=== PATIENT | female | born 1945 | race Caucasian/White ===

== ENCOUNTER 2019-09-24 10:30 | Inpatient (IN) | payer MEDICARE ==
[2019-09-24] MEDS ORDERED: ACETAMINOPHEN TAB 325 MG TAB PO PRN (10:41)
[2019-09-24] MEDS ORDERED: NALOXONE 0.4 MG/ML 1 ML VIAL IV PRN (10:41)
--- NOTE | 2019-09-24 10:44 | ED ---
General Adult HPI - General Stated complaint: CHF Time Seen by Provider: 09/24/19 10:34 Source: patient, RN notes reviewed, old records reviewed - History of Present Illness Initial comments: 73-year-old female transferred from [place] for evaluation of hypoxia and dyspnea. Patient was diagnosed with pneumonia, and congestive heart failure. She was given antibiotics and Lasix prior to transfer. There was also concern f or pulmonary embolism however the patient could not have a CT angiography performed secondary to body habitus. She was sent to this institution for further treatment of pneumonia, CHF, and evaluation of pulmonary embolism by VQ scan. Patient states she had had dyspnea for the past several days, and denies cough, denies central chest pain. Does report bilateral lower extremity edema. Currently on 20 mg of Lasix daily. Additionally she has history of atrial fibrillation and is not on anticoagulation secondary to bleeding issues. - Related Data Allergies Allergy/AdvReac Type Severity Reaction Status Date / Time No Known Allergies Allergy Verified 09/24/19 10:45 Review of Systems ROS Statement: Those systems with pertinent positive or pertinent negative responses have been documented in the HPI. ROS Other: All systems not noted in ROS Statement are negative. General Exam General appearance: alert, in no apparent distress Head exam: Present: atraumatic, normocephalic Eye exam: Present: normal appearance, PERRL ENT exam: Present: normal exam Neck exam: Present: normal inspection. Absent: tenderness, meningismus Respiratory exam: Present: rales, rhonchi, decreased breath sounds. Absent: respiratory distress Cardiovascular Exam: Present: regular rate, irregular rhythm GI/Abdominal exam: Present: soft, distended. Absent: tenderness, guarding, rebound Extremities exam: Present: pedal edema. Absent: calf tenderness Neurological exam: Present: alert, oriented X3, CN II-XII intact. Absent: motor sensory deficit Psychiatric exam: Present: normal affect, normal mood Skin exam: Present: warm, dry, intact. Absent: cyanosis, diaphoretic Medical Decision Making - Medical Decision Making 73-year-old female transferred for pneumonia, CHF, and concern for pulmonary embolism. VQ scan has been ordered, I have low suspicion for pulmonary embolism however given the patient's recent travel history and hypoxia this should be ruled out. She will receive continued treatment for pneumonia and CHF. Laboratory testing was reviewed from outside hospital, [facility] White blood cell count of 20, hemoglobin was 11. She had normal kidney function with a creatinine of 1. She had a negative troponin and an elevated BNP. Case discussed with Dr. Farfan he will accept admission and will follow-up o n VQ scan. Disposition Clinical Impression: Pneumonia, CHF (congestive heart failure) Disposition: ADMITTED IP TO THIS HOSP Condition: Stable Is patient prescribed a controlled substance at d/c from ED?: No Referrals: Dinesh Desouza MD [Primary Care Provider] - 1-2 days Decision to Admit Reason: Admit from EC Decision Date: 09/24/19 Decision Time: 10:53
[2019-09-24] MEDS ORDERED: METOPROLOL SUCCINATE (ER) 25 MG TAB.ER.24H PO STA (10:58)
[2019-09-24] MEDS ORDERED: DILTIAZEM DRIP BOLUS FROM BAG 1 MG SOLN IV ONE (12:47)
[2019-09-24] MEDS: DILTIAZEM 125 MG in SODIUM CHLORIDE 0.9% 100 ML IV SCH (13:28)
[2019-09-24 14:55] LABS: Cholesterol 103 mg/dL (<200); HDL Cholesterol 16 mg/dL (40-60); LDL Cholesterol,Calculated 59 mg/dL (0-99); Triglycerides 140 mg/dL (<150)
[2019-09-24 15:02] VITALS: BMI 54.9
--- NOTE | 2019-09-24 15:29 | P.HPIM ---
History of Present Illness H&P Date: 09/24/19 Chief Complaint: Shortness of breath This is a 73-year-old female with past medical history noted below who presented to an outside emergency room with worsening shortness of breath and dyspnea. Patient said that her symptoms started 3 days ago. She denies fever or chills. No cough. No chest pain. Patient said that she is chronically unable to lay flat and get short of breath with laying flat. She denies history of CHF. She is known to have history of chronic A. fib and usually follow-up with cardiology locally. Last week she came from [place] and was a passenger in a car with her driving the car all the way from [place]. There was concern about her possibly having a PE that she did not fit in the computed tomography scan machine at the outside hospital so she was transferred here for a VQ scan. Chest x-ray at the outside hospital showed lung infiltrate suggestive for pneumonia versus CHF. Review of Systems Review of system: 14 points review of systems were obtained and were negative except to what were mentioned in the HPI. Past Medical History Past Medical History: Atrial Fibrillation, Cancer, Diabetes Mellitus, GERD/Reflux, Hyperlipidemia, Hypertension, Osteoarthritis (OA) Additional Past Medical History / Comment(s): NIDDM type II, neuropathy bilateral lower legs/feet, past anemia with transfusion, past esophageal "lesions" cauterized off, uterine cancer with surgery, chronic low back pain, bilateral leg edema at times, UTIs. History of Any Multi-Drug Resistant Organisms: None Reported Past Surgical History: Hysterectomy, Orthopedic Surgery, Tonsillectomy Additional Past Surgical History / Comment(s): EGD, colonoscopy, R knee arthroscopy, bilateral cataract removals/lens implants Past Anesthesia/Blood Transfusion Reactions: No Reported Reaction Additional Past Anesthesia/Blood Transfusion Reaction / Comment(s): Pt has received blood in past without reaction. Smoking Status: Never smoker - Past Family History Father Family Medical History: Cancer Additional Family Medical History / Comment(s): Father had lung cancer. Mother Family Medical History: Diabetes Mellitus Medications and Allergies Home Medications Medication Instructions Recorded Confirmed Type Cholecalciferol [Vitamin D3 (25 5,000 unit PO DAILY 09/24/19 09/24/19 History Mcg = 1000 Iu)] Lisinopril [Zestril] 2.5 mg PO DAILY 09/24/19 09/24/19 History Magnesium 250 mg PO DAILY 09/24/19 09/24/19 History Metoprolol Succinate (ER) [Toprol 50 mg PO DAILY 09/24/19 09/24/19 History Xl] Omeprazole 20 mg PO DAILY 09/24/19 09/24/19 History Pravastatin Sodium [Pravachol] 20 mg PO HS 09/24/19 09/24/19 History glipiZIDE [Glucotrol] 5 mg PO AC-BRKFST 09/24/19 09/24/19 History metFORMIN HCL [metFORMIN HCL ER] 500 mg PO BID 09/24/19 09/24/19 History Allergies Allergy/AdvReac Type Severity Reaction Status Date / Time No Known Allergies Allergy Verified 09/24/19 10:45 Physical Exam Vitals: Vital Signs Temp Pulse Resp BP Pulse Ox 09/24/19 13:16 110 H 18 09/24/19 12:47 135 H 24 134/82 09/24/19 12:16 22 119/80 99 09/24/19 11:46 115 H 20 110/80 100 09/24/19 10:46 97.9 F 118 H 22 127/81 100 Intake and Output 09/24/19 09/24/19 09/24/19 06:59 14:59 22:59 Output Total 405 Balance -405 Output: Urine 405 Other: Weight 145.15 kg General: The patient is awake and alert, in no distress Eye: there is normal conjunctiva bilaterally. Neck: The neck is supple, there is no JVD. Cardiovascular: Normal S1-S2, no S3-S4, no murmurs. Respiratory: Diminished with scattered crackles Gastrointestinal: Abdomen is soft, nontender Musculoskeletal: There is 1-2 pedal edema bilaterally Neurological:. Speech is normal. Skin: Skin is warm and dry Results Labs: Abnormal Lab Results - Last 24 Hours (Table) 09/24/19 09/24/19 Range/Units 14:14 14:14 D-Dimer 2.36 H (<0.60) mg/L FEU HDL Cholesterol 16 L (40-60) mg/dL Thrombosis Risk Factor Assmnt - Choose All That Apply Any of the Below Risk Factors Present?: Yes Each Factor Represents 1 point: Heart failure (<1month), Obesity (BMI >25), Serious lung disease incl. pneumonia (< 1month), Swollen legs (current) Other Risk Factors: Yes Each Risk Factor Represents 2 Points: Age 61-74 years Other congenital or acquired thrombophilia - If yes, enter type in comment: No Thrombosis Risk Factor Assessment Total Risk Factor Score: 6 Thrombosis Risk Factor Assessment Level: High Risk Assessment and Plan Assessment: 1. Acute congestive heart failure exacerbation. Unclear whether systolic or diastolic. Awaiting echocardiogram. Seen and evaluated by cardiology. Continue IV Lasix 40 mg twice daily. Awaiting BNP. 2. Dyspnea with elevated d-dimer, this did not fit in the computed tomography scan machine. Awaiting VQ scan. 3. Community-acquired pneumonia: This likely clinically as patient denies any cough and no leukocytosis. We will order pro-calcitonin. Continue antibiotic with ceftriaxone and azithromycin for now. 4. Type 2 diabetes: Continue sliding scale insulin. Hold oral agents. 5. DVT prophylaxis with subcu heparin
[2019-09-24 16:22] LABS: Glucose,Whole Blood 136 mg/dL (75-99)
--- NOTE | 2019-09-24 17:07 | CONS ---
CONSULTATION Mrs. Samayoa is a 73-year-old female who is transferred from [facility] for evaluation of dyspnea. She has been complaining of progressive dyspnea over the last 3 or 4 days with no fever and no significant cough. She was diagnosed with pneumonia. Patient has a known history of chronic persistent atrial fibrillation, has been followed by Dr. West on a regular basis and has not been anticoagulated because of severe hematuria with 2 different anticoagulant. She has traveled back from [place] recently. In the past, her left ventricular systolic function was normal and she had mild to moderate tricuspid and mild mitral regurgitation. She has no history of coronary artery disease and her stress test in 2019 showed no evidence of inducible ischemia. The patient has been complaining of progressive dyspnea. She has chronic peripheral edema, no clear PND. No orthopnea. No chest discomfort. She denies any dizziness or palpitations. She is not aware of the atrial fibrillation. She has a history of hyperlipidemia, diabetes and hypertension. She is a nonsmoker. MEDICATION: At home include metformin, Glucotrol, pravastatin 20 mg daily, omeprazole, metoprolol succinate 50 mg daily, magnesium, Zestril 2.5 mg daily. REVIEW OF SYSTEMS: RESPIRATORY SYSTEM: She has dyspnea on exertion, the cough. She had prior wheezing. GI SYSTEM: No GI bleeding. No nausea or vomiting. SYSTEM: No further hematuria after she stopped the anticoagulant in the fall. NERVOUS SYSTEM: No history of stroke or seizure. PHYSICAL EXAMINATION: A 73-year-old female, alert, oriented, in no apparent distress. Morbidly obese. Blood pressure 134/80 with a heart rate in the 110s. HEAD: Normocephalic. EYES: Sclerae anicteric. NECK: Good upstroke, no bruit. LUNGS: With a few crackles, no wheezes. HEART: Irregular, regular, S1, S2. No S3 with systolic murmur at the base, ejection type, no diastolic murmur. ABDOMEN: Soft, obese, nontender. Positive bowel sounds, no organomegaly. EXTREMITIES: +1 edema. LAB DATA: Showed an EKG with atrial fibrillation, rate of 119, poor R-wave progression, nonspecific ST-T wave changes. Chest x-ray showed left basal atelectasis. Creatinine of 1.0, BUN of 19, potassium 3.6. BNP of 685. Troponin 0.01. Hemoglobin of 11.3, white blood cell of 22.6. IMPRESSION: 1. Symptoms of progressive dyspnea with possible pulmonary infection. Patient has evidence of fluid overload with prior preserved systolic function. 2. Chronic persistent atrial fibrillation, not anticoagulated because of recurrent hematuria. 3. History of hypertension. 4. Hyperlipidemia. 5. Diabetes mellitus. 6. Morbid obesity. RECOMMENDATION: Patient is receiving treatment for pneumonia because of her recent travel from [place]. She will undergo a V/Q scan. Apparently, she could not lay flat for a CT angiogram. I will obtain echocardiogram with Doppler. Will follow her renal function. I will adjust her dose of beta demario. Depending on her progress, further recommendation will be made. Thank you for this consult. Will follow with you. MMODL / IJN: [id number] /
[2019-09-24] MEDS: INSULIN ASPART (NovoLOG) 100 UNIT/ML VIAL SQ SCH ×2 (17:11→20:42)
--- NOTE | 2019-09-24 17:33 | ECHOF ---
Referral Reason:AF, CHF MEASUREMENTS -------- HEIGHT: 162.6 cm WEIGHT: 145.1 kg BP: 119/80 RVIDd: 3.3 cm (< 3.3) IVSd: 1.3 cm (0.6 - 1.1) LVIDd: 5.6 cm (3.9 - 5.3) LVPWd: 1.2 cm (0.6 - 1.1) IVSs: 1.7 cm LVIDs: 3.4 cm LVPWs: 1.9 cm LA Diam: 4.3 cm (2.7 - 3.8) Ao Diam: 3.4 cm (2.0 - 3.7) AV Cusp: 1.8 cm (1.5 - 2.6) AV maxP.95 mmHg AV meanP.28 mmHg RAP: 5.00 mmHg RVSP: 45.07 mmHg FINDINGS -------- This was a technically difficult study with suboptimal views. The left ventricular size is normal. There is mild concentric left ventricular hypertrophy. Overa ll left ventricular systolic function is mildly impaired with, an EF between 45 - 50 %. The right ventricle is mildly enlarged. The left atrium is moderately dilated. The right atrium was not well visualized. Lumason used There is mild aortic valve sclerosis. Mild mitral annular calcification present. Mild tricuspid regurgitation present. There is mild to moderate pulmonary hypertension. The right ventricular systolic pressure, as measured by Doppler, is 45.07mmHg. The pulmonic valve was not well visualized. The aortic root size is normal. CONCLUSIONS -------- 1. This was a technically difficult study with suboptimal views. 2. The left ventricular size is normal. 3. There is mild concentric left ventricular hypertrophy. 4. Overall left ventricular systolic function is mildly impaired with, an EF between 45 - 50 %. 5. The right ventricle is mildly enlarged. 6. The left atrium is moderately dilated. 7. The right atrium was not well visualized. 8. Lumason used 9. There is mild aortic valve sclerosis. 10. Mild mitral annular calcification present. 11. Mild tricuspid regurgitation present. 12. There is mild to moderate pulmonary hypertension. 13. The right ventricular systolic pressure, as measured by Doppler, is 45.07mmHg. 14. The pulmonic valve was not well visualized. 15. The aortic root size is normal. LOG SKIDDER: Britany Bullard RDCS
[2019-09-24 20:08] LABS: Glucose,Whole Blood 200 mg/dL (75-99)
[2019-09-24] MEDS: HEPARIN SODIUM,PORCINE 5,000 UNIT/ML 1 ML VIAL SQ SCH (20:41)
[2019-09-24] MEDS: FUROSEMIDE 10 MG/ML 4 ML VIAL IV SCH (20:41)
[2019-09-24] MEDS: PRAVASTATIN SODIUM 20 MG TAB PO SCH (20:42)
[2019-09-24] MEDS: METOPROLOL SUCCINATE (ER) 50 MG TAB.ER.24H PO SCH (20:42)
[2019-09-25 06:04] LABS: Glucose,Whole Blood 140 mg/dL (75-99)
[2019-09-25] MEDS: INSULIN ASPART (NovoLOG) 100 UNIT/ML VIAL SQ SCH ×4 (06:20→20:46)
[2019-09-25] MEDS: METOPROLOL SUCCINATE (ER) 50 MG TAB.ER.24H PO SCH ×2 (08:23→20:46)
[2019-09-25] MEDS: FUROSEMIDE 10 MG/ML 4 ML VIAL IV SCH ×2 (08:24→20:46)
[2019-09-25] MEDS: HEPARIN SODIUM,PORCINE 5,000 UNIT/ML 1 ML VIAL SQ SCH ×2 (08:24→20:46)
[2019-09-25] MEDS ORDERED: AZITHROMYCIN 500 MG in SODIUM CHLORIDE 0.9% 250 ML IVPB SCH (09:00)
[2019-09-25 09:08] LABS: Calcium 8.4 mg/dL (8.4-10.2); Potassium 4.2 mmol/L (3.5-5.1)
[2019-09-25 10:15] LABS: Anisocytosis Slight; HCT 38.6 % (34.0-46.0); HGB 10.7 gm/dL (11.4-16.0); Hypochromasia Marked; MCH 23.7 pg (25.0-35.0); MCHC 27.6 g/dL (31.0-37.0); MCV 85.7 fL (80.0-100.0); Mean Platelet Volume 7.8; Platelet Count 428 k/uL (150-450); RBC 4.51 m/uL (3.80-5.40); RDW 16.3 % (11.5-15.5); WBC 20.6 k/uL (3.8-10.6)
[2019-09-25] MEDS: LISINOPRIL 2.5 MG TAB PO SCH (10:17)
[2019-09-25 12:01] LABS: Glucose,Whole Blood 219 mg/dL (75-99)
--- NOTE | 2019-09-25 12:23 | CT ---
EXAMINATION TYPE: CT angio chest DATE OF EXAM: 09/25/2019 11:52 AM COMPARISON: None. HISTORY: SOB CT DLP: 1053.2 mGycm Automated exposure control for dose reduction was used. CONTRAST: CTA scan of the thorax is performed with IV Contrast, patient injected with 100 mL of Isovue 300, pul monary embolism protocol. . FINDINGS: There is significant breathing motion artifact on this study. There is some atelectasis or consolidation at the right lung base. There is further opacification of the distal pulmonary arteries. There is no large central pulmonary embolus. The aortic root is dilated measuring 4.2 cm. The proximal arch is aneurysmal measuring 3.5 c m. The remainder the visualized aorta is normal in caliber. There is no pleural or pericardial fluid. The heart is enlarged. There is a large hiatal hernia present. Visualized portions of the upper abdomen are unremarkable. There is hypertrophic spondylosis within the spine. IMPRESSION: 1. SUBOPTIMAL EXAMINATION. 2. NO LARGE, CENTRAL PULMONARY EMBOLI. 3. ASCENDING THORACIC AORTIC ANEURYSM WITH MAXIMAL TRANSVERSE DIAMETER 4.2 CM . 4. PROMINENT HIATAL HERNIA. 5. DEGENERATIVE CHANGES WITHIN THE SPINE. .5
--- NOTE | 2019-09-25 12:57 | P.PN ---
Objective - Vital Signs Vital signs: Vital Signs Temp 98.1 F 09/25/19 08:40 Pulse 96 09/25/19 12:00 Resp 18 09/25/19 12:00 BP 107/58 09/25/19 12:00 Pulse Ox 96 09/25/19 12:00 Intake & Output 09/24/19 09/25/19 09/25/19 18:59 06:59 18:59 Intake Total 240 540 120 Output Total 405 750 Balance -165 -210 120 Weight 145.15 kg 150.5 kg 147.5 kg Intake: Oral 240 540 120 Output: Urine 405 750 Other: Voiding Method Incontinent # Voids 1 - Labs CBC & Chem 7: 09/25/19 08:37 09/25/19 08:37 Labs: Abnormal Lab Results - Last 24 Hours (Table) 09/24/19 09/24/19 09/24/19 Range/Units 14:14 14:14 16:21 WBC (3.8-10.6) k/uL Hgb (11.4-16.0) gm/dL MCH (25.0-35.0) pg MCHC (31.0-37.0) g/dL RDW (11.5-15.5) % D-Dimer 2.36 H (<0.60) mg/L FEU Chloride (98-107) mmol/L Carbon Dioxide (22-30) mmol/L BUN (7-17) mg/dL Creatinine (0.52-1.04) mg/dL Glucose (74-99) mg/dL POC Glucose (mg/dL) 136 H (75-99) mg/dL HDL Cholesterol 16 L (40-60) mg/dL 09/24/19 09/25/19 09/25/19 Range/Units 20:06 06:00 08:37 WBC (3.8-10.6) k/uL Hgb (11.4-16.0) gm/dL MCH (25.0-35.0) pg MCHC (31.0-37.0) g/dL RDW (11.5-15.5) % D-Dimer (<0.60) mg/L FEU Chloride 94 L (98-107) mmol/L Carbon Dioxide 37 H (22-30) mmol/L BUN 21 H (7-17) mg/dL Creatinine 1.09 H (0.52-1.04) mg/dL Glucose 195 H (74-99) mg/dL POC Glucose (mg/dL) 200 H 140 H (75-99) mg/dL HDL Cholesterol (40-60) mg/dL 09/25/19 09/25/19 Range/Units 08:37 11:56 WBC 20.6 H (3.8-10.6) k/uL Hgb 10.7 L (11.4-16.0) gm/dL MCH 23.7 L (25.0-35.0) pg MCHC 27.6 L (31.0-37.0) g/dL RDW 16.3 H (11.5-15.5) % D-Dimer (<0.60) mg/L FEU Chloride (98-107) mmol/L Carbon Dioxide (22-30) mmol/L BUN (7-17) mg/dL Creatinine (0.52-1.04) mg/dL Glucose (74-99) mg/dL POC Glucose (mg/dL) 219 H (75-99) mg/dL HDL Cholesterol (40-60) mg/dL Assessment and Plan Assessment: 1. Acute systolic congestive heart failure exacerbation. Echocardiogram showed EF of 45%. Seen and evaluated by cardiology. Continue IV Lasix 40 mg twice daily. 2. Dyspnea with elevated d-dimer, CT angiogram of the chest was a suboptimal study with no obvious central PE 3. Community-acquired pneumonia: Continue antibiotic with ceftriaxone and azithromycin 4. Type 2 diabetes: Continue sliding scale insulin. Hold oral agents. 5. Ascending thoracic aneurysm measuring 4.2 cm noted on computed tomography scan 6. Moderate pulmonary hypertension: Noted on echocardiogram heart 7. DVT prophylaxis with subcu heparin Continue diuresis. Strict I's and O's. Appreciate cardiology recommendations. Repeat lab work in the morning.
--- NOTE | 2019-09-25 15:06 | P.PN ---
Subjective Progress Note Date: 09/25/19 This is a pleasant 73-year-old female who was transferred from [facility] for evaluation of dyspnea. She spent complaining of progressive dyspnea over the last 3 or 4 days with no fever or significant cough. She was diagnosed with pneumonia. Patient has a history of chronic persistent atrial fibrillation and has been followed with Dr. West who has attempted anticoagulation in the past with recurrent severe hematuria. She is being treated for CHF and pneumonia. She is currently on Zithromax, Rocephin, Lasix 40 mg IV push every 12 hours, metoprolol succinate 50 mg by mouth twice a day and pravastatin 20 mg by mouth daily at bedtime. Heart rates are better controlled and at the time of my examination Cardizem is on hold. Mild hypotension noted. Labs this morning showed white blood cell count 20,600, hemoglobin 10.7, BUN 21, creatinine 1.09. NT proBNP 2430. CT of the chest s howed suboptimal examination, no large central pulmonary emboli, ascending thoracic aortic aneurysm with maximal transverse diameter of 4.2 cm and prominent hiatal hernia. Echocardiogram with Doppler study showed mildly impaired LV systolic function with an ejection fraction between 45-50%, mildly enlarged RV, moderately dilated LA, mild TR and mild to moderate pulmonary hypertension. Objective - Vital Signs Vital signs: Vital Signs Temp 98.3 F 09/25/19 13:29 Pulse 102 H 09/25/19 13:29 Resp 31 H 09/25/19 13:29 BP 98/60 09/25/19 13:29 Pulse Ox 90 L 09/25/19 13:29 Intake & Output 09/24/19 09/25/19 09/25/19 18:59 06:59 18:59 Intake Total 240 540 120 Output Total 405 750 Balance -165 -210 120 Weight 145.15 kg 150.5 kg 147.5 kg Intake: Oral 240 540 120 Output: Urine 405 750 Other: Voiding Method Incontinent # Voids 1 - Exam PHYSICAL EXAMINATION: HEENT: Head is atraumatic, normocephalic. Pupils equal, round. Neck is supple. There is no elevated jugular venous pressure. HEART EXAMINATION: Heart sounds irregular irregular, S1 and S2 with a systolic murmur at the base. CHEST EXAMINATION: Lungs reveal few faint crackles. No chest wall tenderness is noted on palpation or with deep breathing. ABDOMEN: Soft, obese, nontender. Bowel sounds are heard. No organomegaly noted. EXTREMITIES: 2+ peripheral pulses with evidence of +1 peripheral edema and no calf tenderness noted. NEUROLOGIC patient is awake, alert and oriented x3. . - Labs CBC & Chem 7: 09/25/19 08:37 09/25/19 08:37 Labs: Abnormal Lab Results - Last 24 Hours (Table) 09/24/19 09/24/19 09/25/19 Range/Units 16:21 20:06 06:00 WBC (3.8-10.6) k/uL Hgb (11.4-16.0) gm/dL MCH (25.0-35.0) pg MCHC (31.0-37.0) g/dL RDW (11.5-15.5) % Chloride (98-107) mmol/L Carbon Dioxide (22-30) mmol/L BUN (7-17) mg/dL Creatinine (0.52-1.04) mg/dL Glucose (74-99) mg/dL POC Glucose (mg/dL) 136 H 200 H 140 H (75-99) mg/dL 09/25/19 09/25/19 09/25/19 Range/Units 08:37 08:37 11:56 WBC 20.6 H (3.8-10.6) k/uL Hgb 10.7 L (11.4-16.0) gm/dL MCH 23.7 L (25.0-35.0) pg MCHC 27.6 L (31.0-37.0) g/dL RDW 16.3 H (11.5-15.5) % Chloride 94 L (98-107) mmol/L Carbon Dioxide 37 H (22-30) mmol/L BUN 21 H (7-17) mg/dL Creatinine 1.09 H (0.52-1.04) mg/dL Glucose 195 H (74-99) mg/dL POC Glucose (mg/dL) 219 H (75-99) mg/dL Assessment and Plan Assessment: #1 symptoms of progressive dyspnea with possible pulmonary infection with evidence of fluid overload secondary to combined congestive heart failure with evidence of pulmonary hypertension and mildly impaired systolic function #2 chronic persistent atrial fibrillation, not anticoagulated due to recurrent hematuria #3 history of hypertension #4 hyperlipidemia #5 diabetes mellitus #6 morbid obesity Plan: From cardiology's perspective will continue IV Lasix at this time. Continue beta demario. Stop Cardizem. We will continue to follow the patient provide further recommendations accordingly. [employer] note has been reviewed, I agree with a documented findings and plan of care. Patient was seen and examined.
[2019-09-25] MEDS: DILTIAZEM 125 MG in SODIUM CHLORIDE 0.9% 100 ML IV SCH (15:29)
[2019-09-25 17:35] LABS: Glucose,Whole Blood 140 mg/dL (75-99)
[2019-09-25 20:35] LABS: Glucose,Whole Blood 175 mg/dL (75-99)
[2019-09-25] MEDS: PRAVASTATIN SODIUM 20 MG TAB PO SCH (20:46)
[2019-09-26 06:30] LABS: Glucose,Whole Blood 163 mg/dL (75-99)
[2019-09-26] MEDS: INSULIN ASPART (NovoLOG) 100 UNIT/ML VIAL SQ SCH ×4 (06:48→22:18)
[2019-09-26 07:17] LABS: Calcium 8.5 mg/dL (8.4-10.2); Potassium 4.6 mmol/L (3.5-5.1)
[2019-09-26 07:22] LABS: Anisocytosis Slight; Basophils # (A) 0.1 k/uL (0-0.2); Basophils % (A) 0 %; Eosinophils # (A) 0.1 k/uL (0-0.7); Eosinophils % (A) 0 %; HCT 39.9 % (34.0-46.0); HGB 11.2 gm/dL (11.4-16.0); Hypochromasia Marked; Lymphocytes # (A) 0.6 k/uL (1.0-4.8); Lymphocytes % (A) 3 %; MCH 24.5 pg (25.0-35.0); MCV 87.7 fL (80.0-100.0); Mean Platelet Volume 7.4; Monocytes # (A) 0.8 k/uL (0-1.0); Monocytes % (A) 5 %; Neutrophils # (A) 14.9 k/uL (1.3-7.7); Neutrophils % (A) 90 %; Platelet Count 320 k/uL (150-450); RBC 4.55 m/uL (3.80-5.40); RDW 16.4 % (11.5-15.5); WBC 16.6 k/uL (3.8-10.6)
[2019-09-26] MEDS: LISINOPRIL 2.5 MG TAB PO SCH (09:15)
[2019-09-26] MEDS: METOPROLOL SUCCINATE (ER) 50 MG TAB.ER.24H PO SCH ×2 (09:15→22:16)
[2019-09-26] MEDS: FUROSEMIDE 10 MG/ML 4 ML VIAL IV SCH ×2 (09:15→22:08)
[2019-09-26] MEDS: HEPARIN SODIUM,PORCINE 5,000 UNIT/ML 1 ML VIAL SQ SCH ×2 (09:15→22:05)
[2019-09-26] MEDS: AZITHROMYCIN 500 MG TAB PO SCH (09:16)
[2019-09-26 11:58] LABS: Glucose,Whole Blood 150 mg/dL (75-99)
--- NOTE | 2019-09-26 12:22 | P.PN ---
Subjective Progress Note Date: 09/26/19 This is a pleasant 73-year-old female who was transferred from [facility] for evaluation of dyspnea. She spent complaining of progressive dyspnea over the last 3 or 4 days with no fever or significant cough. She was diagnosed with pneumonia. Patient has a history of chronic persistent atrial fibrillation and has been followed with Dr. West who has attempted anticoagulation in the past with recurrent severe hematuria. She is being treated for CHF and pneumonia. She is currently on Zithromax, Rocephin, Lasix 40 mg IV push every 12 hours, metoprolol succinate 50 mg by mouth twice a day and pravastatin 20 mg by mouth daily at bedtime. Heart rates are better controlled and at the time of my examination Cardizem is on hold. Mild hypotension noted. Labs this morning showed white blood cell count 20,600, hemoglobin 10.7, BUN 21, creatinine 1.09. NT proBNP 2430. CT of the chest s howed suboptimal examination, no large central pulmonary emboli, ascending thoracic aortic aneurysm with maximal transverse diameter of 4.2 cm and prominent hiatal hernia. Echocardiogram with Doppler study showed mildly impaired LV systolic function with an ejection fraction between 45-50%, mildly enlarged RV, moderately dilated LA, mild TR and mild to moderate pulmonary hypertension. 09/26/2019 The patient was seen and examined this morning sitting up in bed. She continues to complain of shortness of breath that is minimally improved compared to admission. She doesn't feel she's had any improvement since yesterday. She continues on Zithromax, ceftriaxone, and Lasix 40 mg IV push every 12 hours. She continues to be in atrial fibrillation and heart rates are controlled on metoprolol succinate 50 mg by mouth twice a day. Labs today showed BUN 29, creatinine 1.21, white blood cell count 16,600. Objective - Vital Signs Vital signs: Vital Signs Temp 98.3 F 09/26/19 11:36 Pulse 83 09/26/19 11:36 Resp 18 09/26/19 11:36 BP 90/61 09/26/19 11:36 Pulse Ox 95 09/26/19 11:36 Intake & Output 09/25/19 09/26/19 09/26/19 18:59 06:59 18:59 Intake Total 120 Output Total 200 550 Balance -80 -550 Weight 147.5 kg 152.5 kg Intake: Oral 120 Output: Urine 200 550 Other: Voiding Method Incontinent Incontinent Incontinent - Exam PHYSICAL EXAMINATION: HEENT: Head is atraumatic, normocephalic. Pupils equal, round. Neck is supple. There is no elevated jugular venous pressure. HEART EXAMINATION: Heart sounds irregular irregular, S1 and S2 with a systolic murmur at the base. CHEST EXAMINATION: Lungs reveal few faint crackles. No chest wall tenderness is noted on palpation or with deep breathing. ABDOMEN: Soft, obese, nontender. Bowel sounds are heard. No organomegaly noted. EXTREMITIES: 2+ peripheral pulses with evidence of +1 peripheral edema and no calf tenderness noted. NEUROLOGIC patient is awake, alert and oriented x3. . - Labs CBC & Chem 7: 09/26/19 06:37 09/26/19 06:37 Labs: Abnormal Lab Results - Last 24 Hours (Table) 09/25/19 09/25/19 09/25/19 Range/Units 08:37 17:26 20:29 WBC (3.8-10.6) k/uL Hgb (11.4-16.0) gm/dL MCH (25.0-35.0) pg MCHC (31.0-37.0) g/dL RDW (11.5-15.5) % Neutrophils # (1.3-7.7) k/uL Lymphocytes # (1.0-4.8) k/uL Sodium (137-145) mmol/L Carbon Dioxide (22-30) mmol/L BUN (7-17) mg/dL Creatinine (0.52-1.04) mg/dL Glucose (74-99) mg/dL POC Glucose (mg/dL) 140 H 175 H (75-99) mg/dL Procalcitonin 0.37 H (0.02-0.09) ng/mL 09/26/19 09/26/19 09/26/19 Range/Units 06:30 06:37 06:37 WBC 16.6 H (3.8-10.6) k/uL Hgb 11.2 L (11.4-16.0) gm/dL MCH 24.5 L (25.0-35.0) pg MCHC 28.0 L (31.0-37.0) g/dL RDW 16.4 H (11.5-15.5) % Neutrophils # 14.9 H (1.3-7.7) k/uL Lymphocytes # 0.6 L (1.0-4.8) k/uL Sodium 136 L (137-145) mmol/L Carbon Dioxide 31 H (22-30) mmol/L BUN 29 H (7-17) mg/dL Creatinine 1.21 H (0.52-1.04) mg/dL Glucose 153 H (74-99) mg/dL POC Glucose (mg/dL) 163 H (75-99) mg/dL Procalcitonin (0.02-0.09) ng/mL 09/26/19 Range/Units 11:55 WBC (3.8-10.6) k/uL Hgb (11.4-16.0) gm/dL MCH (25.0-35.0) pg MCHC (31.0-37.0) g/dL RDW (11.5-15.5) % Neutrophils # (1.3-7.7) k/uL Lymphocytes # (1.0-4.8) k/uL Sodium (137-145) mmol/L Carbon Dioxide (22-30) mmol/L BUN (7-17) mg/dL Creatinine (0.52-1.04) mg/dL Glucose (74-99) mg/dL POC Glucose (mg/dL) 150 H (75-99) mg/dL Procalcitonin (0.02-0.09) ng/mL Microbiology - Last 24 Hours (Table) 09/25/19 08:37 Blood Culture - Preliminary Blood No Growth after 24 hours Assessment and Plan Assessment: #1 symptoms of progressive dyspnea with possible pulmonary infection with evidence of fluid overload secondary to combined congestive heart failure with evidence of pulmonary hypertension and mildly impaired systolic function #2 chronic persistent atrial fibrillation, not anticoagulated due to recurrent hematuria #3 history of hypertension #4 hyperlipidemia #5 diabetes mellitus #6 morbid obesity Plan: From cardiology's perspective will continue IV Lasix at this time. Continue beta demario. We will continue to follow the patient provide further recommendations accordingly. INFRASTRUCTURE ARCHITECT note has been reviewed, I agree with a documented findings and plan of care. Patient was seen and examined.
--- NOTE | 2019-09-26 13:45 | P.PN ---
Subjective Patient is feeling about the same. She reported that her shortness of breath is not improving. Objective - Vital Signs Vital signs: Vital Signs Temp 98.3 F 09/26/19 11:36 Pulse 83 09/26/19 11:36 Resp 18 09/26/19 11:36 BP 90/61 09/26/19 11:36 Pulse Ox 95 09/26/19 11:36 Intake & Output 09/25/19 09/26/19 09/26/19 18:59 06:59 18:59 Intake Total 120 Output Total 200 550 Balance -80 -550 Weight 147.5 kg 152.5 kg Intake: Oral 120 Output: Urine 200 550 Other: Voiding Method Incontinent Incontinent Incontinent - Exam General: The patient is awake and alert, in no distress Eye: there is normal conjunctiva bilaterally. Neck: The neck is supple, there is no JVD. Cardiovascular: Normal S1-S2, no S3-S4, no murmurs. Respiratory: Lungs with scattered crackles Gastrointestinal: Abdomen is soft, nontender Musculoskeletal: There is +2 pedal edema. Neurological:. Speech is normal. Skin: Skin is warm and dry - Labs CBC & Chem 7: 09/26/19 06:37 09/26/19 06:37 Labs: Abnormal Lab Results - Last 24 Hours (Table) 09/25/19 09/25/19 09/25/19 Range/Units 08:37 17:26 20:29 WBC (3.8-10.6) k/uL Hgb (11.4-16.0) gm/dL MCH (25.0-35.0) pg MCHC (31.0-37.0) g/dL RDW (11.5-15.5) % Neutrophils # (1.3-7.7) k/uL Lymphocytes # (1.0-4.8) k/uL Sodium (137-145) mmol/L Carbon Dioxide (22-30) mmol/L BUN (7-17) mg/dL Creatinine (0.52-1.04) mg/dL Glucose (74-99) mg/dL POC Glucose (mg/dL) 140 H 175 H (75-99) mg/dL Procalcitonin 0.37 H (0.02-0.09) ng/mL 09/26/19 09/26/19 09/26/19 Range/Units 06:30 06:37 06:37 WBC 16.6 H (3.8-10.6) k/uL Hgb 11.2 L (11.4-16.0) gm/dL MCH 24.5 L (25.0-35.0) pg MCHC 28.0 L (31.0-37.0) g/dL RDW 16.4 H (11.5-15.5) % Neutrophils # 14.9 H (1.3-7.7) k/uL Lymphocytes # 0.6 L (1.0-4.8) k/uL Sodium 136 L (137-145) mmol/L Carbon Dioxide 31 H (22-30) mmol/L BUN 29 H (7-17) mg/dL Creatinine 1.21 H (0.52-1.04) mg/dL Glucose 153 H (74-99) mg/dL POC Glucose (mg/dL) 163 H (75-99) mg/dL Procalcitonin (0.02-0.09) ng/mL 09/26/19 Range/Units 11:55 WBC (3.8-10.6) k/uL Hgb (11.4-16.0) gm/dL MCH (25.0-35.0) pg MCHC (31.0-37.0) g/dL RDW (11.5-15.5) % Neutrophils # (1.3-7.7) k/uL Lymphocytes # (1.0-4.8) k/uL Sodium (137-145) mmol/L Carbon Dioxide (22-30) mmol/L BUN (7-17) mg/dL Creatinine (0.52-1.04) mg/dL Glucose (74-99) mg/dL POC Glucose (mg/dL) 150 H (75-99) mg/dL Procalcitonin (0.02-0.09) ng/mL Microbiology - Last 24 Hours (Table) 09/25/19 08:37 Blood Culture - Preliminary Blood No Growth after 24 hours Assessment and Plan Assessment: 1. Acute systolic congestive heart failure exacerbation. Echocardiogram showed EF of 45%. Seen and evaluated by cardiology. Continue IV Lasix 40 mg twice daily. 2. Dyspnea with elevated d-dimer, CT angiogram of the chest was a suboptimal study with no obvious central PE 3. Community-acquired pneumonia: Continue antibiotic with ceftriaxone and azithromycin the #3 4. Type 2 diabetes: Continue sliding scale insulin. Hold oral agents. 5. Ascending thoracic aneurysm measuring 4.2 cm noted on computed tomography scan 6. Moderate pulmonary hypertension: Noted on echocardiogram heart 7. DVT prophylaxis with subcu heparin Continue diuresis. Strict I's and O's. Appreciate cardiology recommendations. Repeat lab work in the morning.
[2019-09-26 17:13] LABS: Glucose,Whole Blood 182 mg/dL (75-99)
[2019-09-26 20:04] LABS: Glucose,Whole Blood 229 mg/dL (75-99)
[2019-09-26] MEDS: PRAVASTATIN SODIUM 20 MG TAB PO SCH (22:16)
[2019-09-27 06:21] LABS: Glucose,Whole Blood 147 mg/dL (75-99)
[2019-09-27] MEDS: INSULIN ASPART (NovoLOG) 100 UNIT/ML VIAL SQ SCH ×4 (07:07→22:03)
[2019-09-27 07:21] LABS: Calcium 8.4 mg/dL (8.4-10.2); Potassium 4.5 mmol/L (3.5-5.1)
[2019-09-27 08:08] LABS: Basophils # (A) 0.1 k/uL (0-0.2); Basophils % (A) 0 %; Eosinophils # (A) 0.1 k/uL (0-0.7); Eosinophils % (A) 1 %; HCT 35.9 % (34.0-46.0); HGB 10.3 gm/dL (11.4-16.0); Hypochromasia Marked; Lymphocytes # (A) 0.5 k/uL (1.0-4.8); Lymphocytes % (A) 4 %; MCH 24.9 pg (25.0-35.0); MCHC 28.7 g/dL (31.0-37.0); MCV 86.9 fL (80.0-100.0); Mean Platelet Volume 7.5; Monocytes # (A) 0.5 k/uL (0-1.0); Monocytes % (A) 3 %; Neutrophils # (A) 12.8 k/uL (1.3-7.7); Neutrophils % (A) 91 %; Platelet Count 341 k/uL (150-450); RBC 4.13 m/uL (3.80-5.40); RDW 15.8 % (11.5-15.5); WBC 14.1 k/uL (3.8-10.6)
[2019-09-27] MEDS: FUROSEMIDE 10 MG/ML 4 ML VIAL IV SCH ×2 (08:49→22:02)
[2019-09-27] MEDS: HEPARIN SODIUM,PORCINE 5,000 UNIT/ML 1 ML VIAL SQ SCH ×2 (08:49→22:08)
[2019-09-27] MEDS: AZITHROMYCIN 500 MG TAB PO SCH (08:50)
[2019-09-27] MEDS: METOPROLOL SUCCINATE (ER) 50 MG TAB.ER.24H PO SCH ×2 (08:50→22:04)
[2019-09-27] MEDS: LISINOPRIL 2.5 MG TAB PO SCH (08:50)
--- NOTE | 2019-09-27 09:42 | P.PN ---
Subjective Progress Note Date: 09/27/19 This is a pleasant 73-year-old female who was transferred from [facility] for evaluation of dyspnea. She spent complaining of progressive dyspnea over the last 3 or 4 days with no fever or significant cough. She was diagnosed with pneumonia. Patient has a history of chronic persistent atrial fibrillation and has been followed with Dr. West who has attempted anticoagulation in the past with recurrent severe hematuria. She is being treated for CHF and pneumonia. She is currently on Zithromax, Rocephin, Lasix 40 mg IV push every 12 hours, metoprolol succinate 50 mg by mouth twice a day and pravastatin 20 mg by mouth daily at bedtime. Heart rates are better controlled and at the time of my examination Cardizem is on hold. Mild hypotension noted. Labs this morning showed white blood cell count 20,600, hemoglobin 10.7, BUN 21, creatinine 1.09. NT proBNP 2430. CT of the chest s howed suboptimal examination, no large central pulmonary emboli, ascending thoracic aortic aneurysm with maximal transverse diameter of 4.2 cm and prominent hiatal hernia. Echocardiogram with Doppler study showed mildly impaired LV systolic function with an ejection fraction between 45-50%, mildly enlarged RV, moderately dilated LA, mild TR and mild to moderate pulmonary hypertension. 09/26/2019 The patient was seen and examined this morning sitting up in bed. She continues to complain of shortness of breath that is minimally improved compared to admission. She doesn't feel she's had any improvement since yesterday. She continues on Zithromax, ceftriaxone, and Lasix 40 mg IV push every 12 hours. She continues to be in atrial fibrillation and heart rates are controlled on metoprolol succinate 50 mg by mouth twice a day. Labs today showed BUN 29, creatinine 1.21, white blood cell count 16,600. 09/27/2019 The patient was seen and examined this morning resting comfortably in bed. She actually verbalizes feeling a bit better today, not as short of breath. Edema seems to have improved somewhat and according to the weights documented in the computer her weight is down about 10 kg. Vital signs are stable heart rate ranging 70s to 90s. Labs show a white blood cell count of 14,100 and she continues on IV antibiotics. Hemoglobin is 10.3, potassium 4.5, BUN 33 creatinine 1.15. Objective - Vital Signs Vital signs: Vital Signs Temp 97.9 F 09/27/19 07:33 Pulse 94 09/27/19 07:33 Resp 16 09/27/19 07:33 BP 111/58 09/27/19 07:33 Pulse Ox 94 L 09/27/19 07:33 Intake & Output 09/26/19 09/27/19 09/27/19 18:59 06:59 18:59 Intake Total 400 230 180 Output Total 1300 600 Balance -900 -370 180 Weight 142 kg Intake: Oral 400 230 180 Output: Urine 1300 600 Other: Voiding Method Incontinent Incontinent Incontinent - Exam PHYSICAL EXAMINATION: HEENT: Head is atraumatic, normocephalic. Pupils equal, round. Neck is supple. There is no elevated jugular venous pressure. HEART EXAMINATION: Heart sounds irregular irregular, S1 and S2 with a systolic murmur at the base. CHEST EXAMINATION: Lungs reveal few faint crackles. No chest wall tenderness is noted on palpation or with deep breathing. ABDOMEN: Soft, obese, nontender. Bowel sounds are heard. No organomegaly noted. EXTREMITIES: 2+ peripheral pulses with evidence of +1 peripheral edema, appears to be improving and no calf tenderness noted. NEUROLOGIC patient is awake, alert and oriented x3. . - Labs CBC & Chem 7: 09/27/19 05:54 09/27/19 05:54 Labs: Abnormal Lab Results - Last 24 Hours (Table) 09/26/19 09/26/19 09/26/19 Range/Units 11:55 17:03 20:02 WBC (3.8-10.6) k/uL Hgb (11.4-16.0) gm/dL MCH (25.0-35.0) pg MCHC (31.0-37.0) g/dL RDW (11.5-15.5) % Neutrophils # (1.3-7.7) k/uL Lymphocytes # (1.0-4.8) k/uL Sodium (137-145) mmol/L Chloride (98-107) mmol/L Carbon Dioxide (22-30) mmol/L BUN (7-17) mg/dL Creatinine (0.52-1.04) mg/dL Glucose (74-99) mg/dL POC Glucose (mg/dL) 150 H 182 H 229 H (75-99) mg/dL 0609/27/19 09/27/19 Range/Units 05:54 05:54 06:19 WBC 14.1 H (3.8-10.6) k/uL Hgb 10.3 L (11.4-16.0) gm/dL MCH 24.9 L (25.0-35.0) pg MCHC 28.7 L (31.0-37.0) g/dL RDW 15.8 H (11.5-15.5) % Neutrophils # 12.8 H (1.3-7.7) k/uL Lymphocytes # 0.5 L (1.0-4.8) k/uL Sodium 135 L (137-145) mmol/L Chloride 95 L (98-107) mmol/L Carbon Dioxide 37 H (22-30) mmol/L BUN 33 H (7-17) mg/dL Creatinine 1.15 H (0.52-1.04) mg/dL Glucose 136 H (74-99) mg/dL POC Glucose (mg/dL) 147 H (75-99) mg/dL Microbiology - Last 24 Hours (Table) 09/25/19 08:37 Blood Culture - Preliminary Blood No Growth after 24 hours Assessment and Plan Assessment: #1 symptoms of progressive dyspnea with possible pulmonary infection and evidence of fluid overload secondary to combined congestive heart failure with evidence of pulmonary hypertension and mildly impaired systolic function #2 chronic persistent atrial fibrillation, not anticoagulated due to recurrent hematuria #3 history of hypertension #4 hyperlipidemia #5 diabetes mellitus #6 morbid obesity Plan: From cardiology's perspective will continue IV Lasix at this time. Continue beta demario. Continue to follow renal function, electrolytes, I & Os and daily weights. We will continue to follow the patient provide further recommendations accordingly. ENTRY LEVEL STAFF ACCOUNTANT note has been reviewed, I agree with a documented findings and plan of care. Patient was seen and examined.
--- NOTE | 2019-09-27 11:07 | P.PN ---
Subjective Patient is feeling better today. She said shortness of breath is improving. She is anxious and wondering when she can go home. No acute events overnight reported by nursing staff. Objective - Vital Signs Vital signs: Vital Signs Temp 97.9 F 09/27/19 07:33 Pulse 94 09/27/19 07:33 Resp 16 09/27/19 07:33 BP 111/58 09/27/19 07:33 Pulse Ox 94 L 09/27/19 07:33 Intake & Output 09/26/19 09/27/19 09/27/19 18:59 06:59 18:59 Intake Total 400 230 180 Output Total 1300 600 Balance -900 -370 180 Weight 142 kg Intake: Oral 400 230 180 Output: Urine 1300 600 Other: Voiding Method Incontinent Incontinent Incontinent - Exam General: The patient is awake and alert, in no distress Eye: there is normal conjunctiva bilaterally. Neck: The neck is supple, there is no JVD. Cardiovascular: Normal S1-S2, no S3-S4, no murmurs. Respiratory: Lungs with scattered crackles Gastrointestinal: Abdomen is soft, nontender Musculoskeletal: There is +2 pedal edema. Neurological:. Speech is normal. Skin: Skin is warm and dry - Labs CBC & Chem 7: 09/27/19 05:54 09/27/19 05:54 Labs: Abnormal Lab Results - Last 24 Hours (Table) 09/26/19 09/26/19 09/26/19 Range/Units 11:55 17:03 20:02 WBC (3.8-10.6) k/uL Hgb (11.4-16.0) gm/dL MCH (25.0-35.0) pg MCHC (31.0-37.0) g/dL RDW (11.5-15.5) % Neutrophils # (1.3-7.7) k/uL Lymphocytes # (1.0-4.8) k/uL Sodium (137-145) mmol/L Chloride (98-107) mmol/L Carbon Dioxide (22-30) mmol/L BUN (7-17) mg/dL Creatinine (0.52-1.04) mg/dL Glucose (74-99) mg/dL POC Glucose (mg/dL) 150 H 182 H 229 H (75-99) mg/dL 09/27/19 09/27/1920 Range/Units 05:54 05:54 06:19 WBC 14.1 H (3.8-10.6) k/uL Hgb 10.3 L (11.4-16.0) gm/dL MCH 24.9 L (25.0-35.0) pg MCHC 28.7 L (31.0-37.0) g/dL RDW 15.8 H (11.5-15.5) % Neutrophils # 12.8 H (1.3-7.7) k/uL Lymphocytes # 0.5 L (1.0-4.8) k/uL Sodium 135 L (137-145) mmol/L Chloride 95 L (98-107) mmol/L Carbon Dioxide 37 H (22-30) mmol/L BUN 33 H (7-17) mg/dL Creatinine 1.15 H (0.52-1.04) mg/dL Glucose 136 H (74-99) mg/dL POC Glucose (mg/dL) 147 H (75-99) mg/dL Microbiology - Last 24 Hours (Table) 09/25/19 08:37 Blood Culture - Preliminary Blood No Growth after 48 hours Assessment and Plan Assessment: 1. Acute systolic congestive heart failure exacerbation. Echocardiogram showed EF of 45%. Seen and evaluated by cardiology. Continue IV Lasix 40 mg twice daily. 2. Dyspnea with elevated d-dimer, CT angiogram of the chest was a suboptimal study with no obvious central PE 3. Community-acquired pneumonia: Continue antibiotic with ceftriaxone and azithromycin the #4. Leukocytosis trending down. Blood culture negative to date. 4. Type 2 diabetes: Continue sliding scale insulin. Hold oral agents. 5. Ascending thoracic aneurysm measuring 4.2 cm noted on computed tomography scan 6. Moderate pulmonary hypertension: Noted on echocardiogram heart 7. DVT prophylaxis with subcu heparin 8. Physical debility, awaiting PT/OT evaluation. Continue diuresis. Strict I's and O's. Appreciate cardiology recommendations. Repeat lab work in the morning. 6 be discharged home within the next day or 2.
[2019-09-27 11:50] LABS: Glucose,Whole Blood 163 mg/dL (75-99)
[2019-09-27 16:59] LABS: Glucose,Whole Blood 240 mg/dL (75-99)
[2019-09-27 20:17] LABS: Glucose,Whole Blood 187 mg/dL (75-99)
[2019-09-27] MEDS: PRAVASTATIN SODIUM 20 MG TAB PO SCH (22:02)
[2019-09-28 06:07] LABS: Glucose,Whole Blood 145 mg/dL (75-99)
[2019-09-28 06:27] LABS: Basophils # (A) 0.1 k/uL (0-0.2); Basophils % (A) 0 %; Eosinophils # (A) 0.1 k/uL (0-0.7); Eosinophils % (A) 1 %; HCT 38.4 % (34.0-46.0); HGB 10.9 gm/dL (11.4-16.0); Hypochromasia Marked; Lymphocytes # (A) 0.5 k/uL (1.0-4.8); Lymphocytes % (A) 4 %; MCH 24.2 pg (25.0-35.0); MCHC 28.4 g/dL (31.0-37.0); MCV 85.4 fL (80.0-100.0); Mean Platelet Volume 7.6; Monocytes # (A) 0.6 k/uL (0-1.0); Monocytes % (A) 5 %; Neutrophils # (A) 12.2 k/uL (1.3-7.7); Neutrophils % (A) 89 %; Platelet Count 323 k/uL (150-450); RBC 4.49 m/uL (3.80-5.40); RDW 15.9 % (11.5-15.5); WBC 13.6 k/uL (3.8-10.6)
[2019-09-28 06:42] LABS: Calcium 8.7 mg/dL (8.4-10.2)
[2019-09-28 06:53] LABS: Potassium 4.4 mmol/L (3.5-5.1)
[2019-09-28] MEDS: INSULIN ASPART (NovoLOG) 100 UNIT/ML VIAL SQ SCH ×4 (07:06→20:42)
[2019-09-28] MEDS: HEPARIN SODIUM,PORCINE 5,000 UNIT/ML 1 ML VIAL SQ SCH ×2 (09:24→20:41)
[2019-09-28] MEDS: AZITHROMYCIN 500 MG TAB PO SCH (09:24)
[2019-09-28] MEDS: FUROSEMIDE 10 MG/ML 4 ML VIAL IV SCH ×2 (09:24→20:41)
[2019-09-28] MEDS: METOPROLOL SUCCINATE (ER) 50 MG TAB.ER.24H PO SCH ×2 (09:24→20:41)
[2019-09-28] MEDS: LISINOPRIL 2.5 MG TAB PO SCH (09:24)
--- NOTE | 2019-09-28 10:52 | P.DS ---
Providers Date of admission: 09/24/19 10:42 Expected date of discharge: 09/28/19 Attending physician: María Elena Thurman MD Consults: 09/24/19 11:07 Consult Physician Routine Consulting Provider: Denis Paris Consult Reason/Comments: A. fib, CHF Do you want consulting provider notified?: Yes Primary care physician: Dinesh Desouza MD Hospital Course: This is a 73-year-old female with past medical history noted below who was transferred to [facility] from an outside hospital for further evaluation of shortness of breath and dyspnea. Patient was evaluated and admitted to the hospital for further management of her medical problems noted below. 1. Acute systolic congestive heart failure exacerbation. Echocardiogram showed EF of 45%. Seen and evaluated by cardiology. Improved significantly with IV Lasix. Continue Lasix 40 mg by mouth twice daily. 2. Dyspnea with elevated d-dimer, CT angiogram of the chest was a suboptimal study with no obvious central PE 3. Community-acquired pneumonia: started onantibiotic with ceftriaxone and azithromycin. We will finish 7 days course of antibiotic. Leukocytosis trending down. Blood culture negative to date. 4. Type 2 diabetes: resume home regimen. Follow-up with PCP as directed. 5. Ascending thoracic aneurysm measuring 4.2 cm noted on computed tomography scan. Follow-up with cardiology outpatient. 6. Moderate pulmonary hypertension: Noted on echocardiogram heart 7. Physical debility, PT/OT evaluation. [facility] For further details about this hospitalization please refer to the electronic chart. Patient Condition at Discharge: Stable Plan - Discharge Summary Discharge Rx Participant: No New Discharge Prescriptions: New Azithromycin 250 mg PO DAILY 3 Days #3 tab Cephalexin [Keflex] 500 mg PO Q6HR 3 Days #12 cap Furosemide [Lasix] 40 mg PO BID #60 tablet Continue Magnesium 250 mg PO DAILY Lisinopril [Zestril] 2.5 mg PO DAILY Pravastatin Sodium [Pravachol] 20 mg PO HS Omeprazole 20 mg PO DAILY Metoprolol Succinate (ER) [Toprol XL] 50 mg PO DAILY Cholecalciferol [Vitamin D3 (25 Mcg = 1000 Iu)] 5,000 unit PO DAILY metFORMIN HCL [metFORMIN HCL ER] 500 mg PO BID glipiZIDE [Glucotrol] 5 mg PO [facility] Discharge Medication List Cholecalciferol [Vitamin D3 (25 Mcg = 1000 Iu)] 5,000 unit PO DAILY 09/24/19 [History] Lisinopril [Zestril] 2.5 mg PO DAILY 09/24/19 [History] Magnesium 250 mg PO DAILY 09/24/19 [History] Metoprolol Succinate (ER) [Toprol XL] 50 mg PO DAILY 09/24/19 [History] Omeprazole 20 mg PO DAILY 09/24/19 [History] Pravastatin Sodium [Pravachol] 20 mg PO HS 09/24/19 [History] glipiZIDE [Glucotrol] 5 mg PO [id number] 09/24/19 [History] metFORMIN HCL [metFORMIN HCL ER] 500 mg PO BID 09/24/19 [History] Azithromycin 250 mg PO DAILY 3 Days #3 tab 09/28/19 [Rx] Cephalexin [Keflex] 500 mg PO Q6HR 3 Days #12 cap 09/28/19 [Rx] Furosemide [Lasix] 40 mg PO BID #60 tablet 09/28/19 [Rx] Follow up Appointment(s)/Referral(s): Dinesh Desouza MD [Primary Care Provider] - 1-2 days Roger Durant MD [STAFF PHYSICIAN] - 2 Weeks Discharge Disposition: TRANSFER TO SNF/ECF
[2019-09-28 12:01] LABS: Glucose,Whole Blood 128 mg/dL (75-99)
--- NOTE | 2019-09-28 13:41 | P.PN ---
Subjective Progress Note Date: 09/28/19 This is a 73-year-old female initially transferred here from [facility] for evaluation of dyspnea. She was diagnosed with a pneumonia. She has a history of chronic persistent atrial fibrillation, follows with Dr. West in the office. Patient is also currently receiving treatment for congestive heart failure. She was seen and examined this morning, good urine output through the night last night although her reflected weight is up today. Blood pressure 100/50, heart rate in the 70s to 80s. White blood cell count 13.6, hemoglobin 10.9, platelet count 323. Sodium 136, potassium 4.4, BUN 32, creatinine 0.8. Objective - Vital Signs Vital signs: Vital Signs Temp 98.1 F 09/28/19 08:00 Pulse 137 H 09/28/19 08:00 Resp 20 09/28/19 08:00 BP 101/58 09/28/19 08:00 Pulse Ox 97 09/28/19 04:00 Intake & Output 09/27/19 09/28/19 09/28/19 18:59 06:59 18:59 Intake Total 180 240 Output Total 800 1900 1600 Balance -620 -1900 -1360 Weight 145.5 kg Intake: Oral 180 240 Output: Urine 800 1900 1600 Other: Voiding Method Incontinent Incontinent Incontinent - Exam PHYSICAL EXAMINATION: HEENT: Head is atraumatic, normocephalic. Pupils equal, round. Neck is supple. There is no elevated jugular venous pressure. HEART EXAMINATION: Heart sounds irregular irregular, S1 and S2 with a systolic murmur at the base. CHEST EXAMINATION: Lungs reveal crackles to the bases . No chest wall tenderness is noted on palpation or with deep breathing. ABDOMEN: Soft, obese, nontender. Bowel sounds are heard. No organomegaly noted. EXTREMITIES: 2+ peripheral pulses with evidence of +1 peripheral edema, appears to be improving and no calf tenderness noted. NEUROLOGIC patient is awake, alert and oriented x3. . - Labs CBC & Chem 7: 09/28/19 05:46 09/28/19 05:46 Labs: Abnormal Lab Results - Last 24 Hours (Table) 09/27/19 09/27/19 09/28/19 Range/Units 16:57 20:16 05:46 WBC 13.6 H (3.8-10.6) k/uL Hgb 10.9 L (11.4-16.0) gm/dL MCH 24.2 L (25.0-35.0) pg MCHC 28.4 L (31.0-37.0) g/dL RDW 15.9 H (11.5-15.5) % Neutrophils # 12.2 H (1.3-7.7) k/uL Lymphocytes # 0.5 L (1.0-4.8) k/uL Sodium (137-145) mmol/L Chloride (98-107) mmol/L Carbon Dioxide (22-30) mmol/L BUN (7-17) mg/dL Glucose (74-99) mg/dL POC Glucose (mg/dL) 240 H 187 H (75-99) mg/dL 09/28/19 09/28/19 09/28/19 Range/Units 05:46 06:05 11:50 WBC (3.8-10.6) k/uL Hgb (11.4-16.0) gm/dL MCH (25.0-35.0) pg MCHC (31.0-37.0) g/dL RDW (11.5-15.5) % Neutrophils # (1.3-7.7) k/uL Lymphocytes # (1.0-4.8) k/uL Sodium 136 L (137-145) mmol/L Chloride 93 L (98-107) mmol/L Carbon Dioxide 39 H (22-30) mmol/L BUN 32 H (7-17) mg/dL Glucose 142 H (74-99) mg/dL POC Glucose (mg/dL) 145 H 128 H (75-99) mg/dL Microbiology - Last 24 Hours (Table) 09/25/19 08:37 Blood Culture - Preliminary Blood No Growth after 72 hours Assessment and Plan Plan: Assessment and plan: #1 symptoms of progressive dyspnea with possible pulmonary infection and evidence of fluid overload secondary to systolic congestive heart failure with evidence of pulmonary hypertension and mildly impaired systolic function, acute on chronic #2 chronic persistent atrial fibrillation, not anticoagulated due to recurrent hematuria #3 history of hypertension #4 hyperlipidemia #5 diabetes mellitus #6 morbid obesity Plan From cardiology's perspective, we will continue current dose of IV Lasix for 24 hours, repeat chest x-ray. Plan for possible discharge home tomorrow if stable. DNP note has been reviewed, I agree with a documented findings and plan of care. Patient was seen and examined.
--- NOTE | 2019-09-28 15:00 | XR ---
EXAMINATION TYPE: XR chest 2V DATE OF EXAM: 09/28/2019 COMPARISON: Chest x-ray 09/24/2019, chest CT 09/25/2019 HISTORY: Congestive heart failure follow-up, abnormal chest x-ray TECHNIQUE: Frontal and lateral views of the chest are obtained. FINDINGS: Lung volumes are low. Bandlike areas of increased attenuation are present at the left lung base. The heart is enlarged. No evident pneumothorax or pleural effusion. Prominence of pulmonary ar brunilda suggests underlying pulmonary artery hypertension. IMPRESSION: Subsegmental basilar atelectatic changes. Correlate for pulmonary artery hypertension. C ardiomegaly. Expiratory rotated exam.
[2019-09-28] MEDS ORDERED: FUROSEMIDE 40 MG TAB PO SCH (16:00)
[2019-09-28 17:00] LABS: Glucose,Whole Blood 196 mg/dL (75-99)
[2019-09-28 20:16] LABS: Glucose,Whole Blood 176 mg/dL (75-99)
[2019-09-28] MEDS: PRAVASTATIN SODIUM 20 MG TAB PO SCH (20:41)
[2019-09-29 06:03] LABS: Glucose,Whole Blood 174 mg/dL (75-99)
[2019-09-29] MEDS: INSULIN ASPART (NovoLOG) 100 UNIT/ML VIAL SQ SCH ×2 (06:34→12:44)
[2019-09-29 09:16] VITALS: BP 89/56; PULSE 96; RESP 16; TEMP 97.9
[2019-09-29] MEDS: FUROSEMIDE 10 MG/ML 4 ML VIAL IV SCH (09:53)
[2019-09-29] MEDS: HEPARIN SODIUM,PORCINE 5,000 UNIT/ML 1 ML VIAL SQ SCH (09:53)
[2019-09-29] MEDS: METOPROLOL SUCCINATE (ER) 50 MG TAB.ER.24H PO SCH (09:54)
[2019-09-29] MEDS: AZITHROMYCIN 500 MG TAB PO SCH (09:54)
[2019-09-29 10:22] LABS: Calcium 8.8 mg/dL (8.4-10.2)
[2019-09-29 10:51] LABS: Potassium 4.3 mmol/L (3.5-5.1)
[2019-09-29 11:44] LABS: Glucose,Whole Blood 182 mg/dL (75-99)
[2019-09-29] MEDS ORDERED: LISINOPRIL 2.5 MG TAB PO SCH (12:00)
--- NOTE | 2019-09-29 13:30 | P.PN ---
Subjective Progress Note Date: 09/29/19 This is a 73-year-old female initially transferred here from [facility] for evaluation of dyspnea. She was diagnosed with a pneumonia. She has a history of chronic persistent atrial fibrillation, follows with Dr. West in the office. Patient is also currently receiving treatment for congestive heart failure. She was seen and examined this morning, good urine output through the night last night although her reflected weight is up today. Blood pressure 100/50, heart rate in the 70s to 80s. White blood cell count 13.6, hemoglobin 10.9, platelet count 323. Sodium 136, potassium 4.4, BUN 32, creatinine 0.8. 09/29/2019 Patient was seen and examined this morning, urine output night last night. Hemodynamically stable. We will discontinue the IV Lasix and start the patient on oral diuretics today. From our perspective she may be able to be discharged home today to follow-up in the office post discharge. Objective - Vital Signs Vital signs: Vital Signs Temp 97.9 F 09/29/19 07:00 Pulse 96 09/29/19 07:00 Resp 16 09/29/19 07:00 BP 89/56 09/29/19 07:00 Pulse Ox 96 09/29/19 07:00 Intake & Output 09/28/19 09/29/19 09/29/19 18:59 06:59 18:59 Intake Total 480 240 240 Output Total 2200 2180 1000 Balance -1720 -1940 -760 Intake: Oral 480 240 240 Output: Urine 2200 1860 1000 Stool 320 Other: Voiding Method Incontinent Incontinent Incontinent # Voids 0 # Bowel Movements 1 - Exam PHYSICAL EXAMINATION: HEENT: Head is atraumatic, normocephalic. Pupils equal, round. Neck is supple. There is no elevated jugular venous pressure. HEART EXAMINATION: Heart sounds irregular irregular, S1 and S2 with a systolic murmur at the base. CHEST EXAMINATION: Lungs clear to auscultation . No chest wall tenderness is noted on palpation or with deep breathing. ABDOMEN: Soft, obese, nontender. Bowel sounds are heard. No organomegaly noted. EXTREMITIES: 2+ peripheral pulses with evidence of trace peripheral edema, appears to be improving and no calf tenderness noted. NEUROLOGIC patient is awake, alert and oriented x3. . - Labs CBC & Chem 7: 09/28/19 05:46 09/29/19 09:19 Labs: Abnormal Lab Results - Last 24 Hours (Table) 09/28/19 09/28/19 09/29/19 Range/Units 16:49 20:14 06:02 Chloride (98-107) mmol/L Carbon Dioxide (22-30) mmol/L BUN (7-17) mg/dL Glucose (74-99) mg/dL POC Glucose (mg/dL) 196 H 176 H 174 H (75-99) mg/dL 09/29/19 09/29/19 Range/Units 09:19 11:22 Chloride 90 L (98-107) mmol/L Carbon Dioxide 46 H* (22-30) mmol/L BUN 36 H (7-17) mg/dL Glucose 197 H (74-99) mg/dL POC Glucose (mg/dL) 182 H (75-99) mg/dL Microbiology - Last 24 Hours (Table) 09/25/19 08:37 Blood Culture - Preliminary Blood No Growth after 96 hours Assessment and Plan Plan: Assessment and plan: #1 symptoms of progressive dyspnea with possible pulmonary infection and evidence of fluid overload secondary to systolic congestive heart failure with evidence of pulmonary hypertension and mildly impaired systolic function, acute on chronic #2 chronic persistent atrial fibrillation, not anticoagulated due to recurrent hematuria #3 history of hypertension #4 hyperlipidemia #5 diabetes mellitus #6 morbid obesity Plan From cardiology's perspective, we will discontinue current dose of IV Lasix, changed to oral diuretics. Okay for discharge home from cardiology's perspective. DNP note has been reviewed, I agree with a documented findings and plan of care. Patient was seen and examined.
[2019-09-29] MEDS ORDERED: FUROSEMIDE 20 MG TAB PO SCH (16:00)
== END 2019-09-29 14:02 | DRG 291 ==
LOC: EC 10:30 → 3SCARD 10:42
PROVIDERS: ADMIT Family Medicine; ATTEND Family Medicine
DX: I11.0 Hypertensive heart disease with heart failure (principal); J18.9 Pneumonia, unspecified organism; I48.19 Other persistent atrial fibrillation; Z68.43 Body mass index [BMI] 50.0-59.9, adult; I50.23 Acute on chronic systolic (congestive) heart failure; I27.20 Pulmonary hypertension, unspecified; E78.5 Hyperlipidemia, unspecified; I71.2 Thoracic aortic aneurysm, without rupture; R09.02 Hypoxemia; I08.1 Rheumatic disorders of both mitral and tricuspid valves; Z20.828 Contact with and (suspected) exposure to other viral communicable diseases; R79.1 Abnormal coagulation profile; G89.29 Other chronic pain; M54.5 Low back pain; E66.01 Morbid (severe) obesity due to excess calories; E11.40 Type 2 diabetes mellitus with diabetic neuropathy, unspecified; Z79.84 Long term (current) use of oral hypoglycemic drugs; R53.81 Other malaise; K21.9 Gastro-esophageal reflux disease without esophagitis; Z87.440 Personal history of urinary (tract) infections; M19.90 Unspecified osteoarthritis, unspecified site; Z79.899 Other long term (current) drug therapy; Z80.1 Family history of malignant neoplasm of trachea, bronchus and lung; Z83.3 Family history of diabetes mellitus; Z85.42 Personal history of malignant neoplasm of other parts of uterus; Z90.710 Acquired absence of both cervix and uterus; Z98.42 Cataract extraction status, left eye; Z98.41 Cataract extraction status, right eye; Z96.1 Presence of intraocular lens
CPT/HCPCS: 71046; 71275; 80048; 80061; 83735; 83880; 84145; 85025; 85027; 85379; 87040; 93005; 93306; 99285